=== PATIENT | female | born 1960 | race Caucasian/White ===

== ENCOUNTER 2017-01-31 17:40 | Emergency (ER) | payer OTHER ==
[2017-01-31 17:59] VITALS: BP 143/87; PULSE 87; TEMP 97.5; BMI 29.4
--- NOTE | 2017-01-31 18:01 | PDOC ---
[id number] No Limitations - History of Present Illness Initial Comments: 01/31/17 18:19 The patient is a 56 year old female, with no significant past medical history, who presents today complaining of right hand pain. The patient states that she was in the supermarket when she quickly turned around to respond to someone and accidentally hit her hand into a shelf in a punching motion. She reports pain and swelling near the 1st and 2nd knuckle. The pain is exacerbated secondary to extending her fingers. She denies any other trauma. Allergies: none reported <Yessica Garcia - Last Filed: 01/31/17 19:36> <Elis Carroll - Last Filed: 02/03/17 12:08> - General Chief Complaint: Injury Stated Complaint: RIGHT HAND INJURY Time Seen by Provider: 01/31/17 18:01 Past History <Yessica Garcia - Last Filed: 01/31/17 19:36> - Past Medical History Suicide Attempt (Hx): No Thyroid Disease: No - Psycho/Social/Smoking Cessation Hx Anxiety: No Suicidal Ideation: No Smoking History: Never smoked Have you smoked in the past 12 months: No Hx Alcohol Use: Yes (OCCASIONAL ONLY) Drug/Substance Use Hx: No Substance Use Type: None <Elis Carroll - Last Filed: 02/03/17 12:08> - Past Medical History Allergies/Adverse Reactions: Allergies Allergy/AdvReac Type Severity Reaction Status Date / Time No Known Allergies Allergy Verified 03/30/14 16:39 Home Medications: Ambulatory Orders Cholecalciferol (Vitamin D3) [Vitamin D3] 400 unit PO DAILY 01/31/17 Magnesium Oxide [Magnesium] 400 mg PO DAILY 01/31/17 Review of Systems - Review of Systems Comments:: 01/31/17 18:20 GENERAL/CONSTITUTIONAL: No fever or chills. No weakness. HEAD, EYES, EARS, NOSE AND THROAT: No change in vision. No ear pain or discharge. No sore throat. CARDIOVASCULAR: No chest pain or shortness of breath. RESPIRATORY: No cough, wheezing, or hemoptysis. GASTROINTESTINAL: No nausea, vomiting, diarrhea or constipation. GENITOURINARY: No dysuria, frequency, or change in urination. MUSCULOSKELETAL: +right hand injury with swelling and pain. No joint or muscle swelling or pain. No neck or back pain. SKIN: No rash NEUROLOGIC: No headache, vertigo, loss of consciousness, or change in strength/ sensation. ENDOCRINE: No increased thirst. No abnormal weight change. HEMATOLOGIC/LYMPHATIC: No anemia, easy bleeding, or history of blood clots. ALLERGIC/IMMUNOLOGIC: No hives or skin allergy. <Yessica Garcia - Last Filed: 01/31/17 19:36> *Physical Exam - Vital Signs Last Vital Signs Temp Pulse Resp BP Pulse Ox 97.5 F L 87 15 143/87 98 01/31/17 17:51 01/31/17 17:51 01/31/17 17:51 01/31/17 17:51 01/31/17 17:51 <AndredannyYessica - Last Filed: 01/31/17 19:36> - Vital Signs Last Vital Signs Temp Pulse Resp BP Pulse Ox 97.5 F L 87 15 143/87 98 01/31/17 17:51 01/31/17 17:51 01/31/17 17:51 01/31/17 17:51 01/31/17 17:51 - Physical Exam Comments: GENERAL: Awake, alert, and fully oriented, in no acute distress HEAD: No signs of trauma EYES: PERRLA, EOMI, sclera anicteric, conjunctiva clear ENT: Auricles normal inspection, hearing grossly normal, nares patent, oropharynx clear without exudates. Moist mucosa EXTREMITIES: R hand with ecchymosis over the 2nd and 3rd metacarpals, difficulty extending them due to pain. Cap refill <2s. Remainder of extremities with normal range of motion, no edema. No clubbing or cyanosis. No cords, erythema, or tenderness NEUROLOGICAL: Cranial nerves II through XII grossly intact. Normal speech, normal gait SKIN: Warm, Dry, normal turgor, no rashes or lesions noted. <Elis Carroll - Last Filed: 02/03/17 12:08> Procedures - Splinting Splint Location: Right: Finger (2nd/3rd fingers judi taped for comfort) Sling: Yes (sling placed for patient comfort due to swelling/throbbing pain) <Elis Carroll - Last Filed: 02/03/17 12:08> ED Treatment Course - RADIOLOGY Radiograph Interpretation: 01/31/17 19:36 EXAM: Right hand x-ray HISTORY:Possible fractures of the second and third metacarpal COMPARISON: None. FINDINGS:3 views of the right hand are available. No acute osseous abnormality is seen or dislocation or subluxation. The soft tissues are normal. There are postsurgical changes involving the navicular bone and lunate bone IMPRESSION: No acute findings THIS DOCUMENT HAS BEEN ELECTRONICALLY SIGNED Tha Mora MD <Yessica Garcia - Last Filed: 01/31/17 19:36> *DC/Admit/Observation/Transfer - Attestations Scribe Attestion: 01/31/17 18:20 Documentation prepared by CHERYL Meng, acting as medical services coordinator for Elis Carroll MD. <Yessica Garcia - Last Filed: 01/31/17 19:36> - Discharge Dispostion Admit: No <Elis Carroll - Last Filed: 02/03/17 12:08> Diagnosis at time of Disposition: Soft tissue injury - Discharge Dispostion Disposition: HOME Condition at time of disposition: Good - Patient Instructions Printed Discharge Instructions: DI for Hand Injury
== END 2017-01-31 19:18 | disposition home or self-care (01) ==
LOC: FER 17:40
DX: M79.89 Other specified soft tissue disorders (principal); W22.01XA Walked into wall, initial encounter; Y93.89 Activity, other specified; Y92.512 Supermarket, store or market as the place of occurrence of the external cause
CPT/HCPCS: 73130-TC-RT; 99282-25